=== PATIENT | male | born 2000 | race Caucasian/White ===

== ENCOUNTER 2024-03-19 22:00 | Emergency (ER) | payer MEDICAID ==
[~2024-03-19] VITALS: Ht 172.7 cm; Wt 78.5 kg
[2024-03-19 22:27] VITALS: BP 136/72; PULSE 110; RESP 18; TEMP 99; O2SAT 99
[2024-03-19 23:48] LABS: FLU A ANTIGEN negative (NEGATIVE); FLU B ANTIGEN NEGATIVE (NEGATIVE)
[2024-03-19] MEDS: ACETAMINOPHEN EXTRA STRENGTH 500 MG TAB PO ONE (23:51)
[2024-03-19] MEDS: KETOROLAC 30 MG/ML VIAL IM ONE (23:51)
[2024-03-20 00:43] VITALS: BP 136/72; PULSE 110; RESP 18; TEMP 99; O2SAT 99
== END 2024-03-20 00:43 | disposition home or self-care (01) ==
LOC: MED 22:00
DX: U07.1 COVID-19 (principal); J45.909 Unspecified asthma, uncomplicated
CPT/HCPCS: 87426; 87804; 96372; 99283; J1885

== ENCOUNTER 2024-06-24 04:45 | Emergency (ER) | payer MEDICAID ==
[~2024-06-24] VITALS: Ht 172.7 cm; Wt 81.6 kg
[2024-06-24 04:54] VITALS: BP 144/69; PULSE 81; RESP 18; TEMP 97.8; O2SAT 98
[2024-06-24 05:03] VITALS: BP 144/69; PULSE 81; RESP 18; TEMP 97.8
[2024-06-24] MEDS: NACL 0.9% 1,000 ML IV ONE (05:14)
[2024-06-24] MEDS: FAMOTIDINE 20 MG/2 ML VIAL IVP ONE (05:19)
[2024-06-24] MEDS: ONDANSETRON 4 MG/2 ML VIAL IVP ONE (05:19)
[2024-06-24 05:21] VITALS: O2SAT 98
[2024-06-24 05:25] LABS: BASOPHILS % (AUTO) 0.4 % (0.0-2.0); EOSINOPHILS # (AUTO) 0.4 K/uL (0-0.4); EOSINOPHILS % (AUTO) 4.9 % (0.0-4.0); HEMATOCRIT 46.3 % (36-52); HEMOGLOBIN 15.7 g/dL (12.0-18.0); LYMPHOCYTES # (AUTO) 1.7 K/uL (2.0-11.5); LYMPHOCYTES % (AUTO) 23.3 % (20.5-51.1); MEAN CORPUSCULAR HEMOGLOBIN 31 pg (27-31); MEAN CORPUSCULAR HGB CONC 34 g/dL (33-37); MEAN CORPUSCULAR VOLUME 92.5 fL (80-94); MONOCYTES # (AUTO) 0.9 K/uL (0.8-1.0); MONOCYTES % (AUTO) 11.8 % (1.7-9.3); NEUTROPHILS # (AUTO) 4.4 K/uL (1.8-7.7); NEUTROPHILS % (AUTO) 59.6 % (42.2-75.2); PLATELET COUNT (AUTO) 224 K/uL (140-450); RED CELL DISTRIBUTION WIDTH 13.2 % (11.6-13.7); WHITE BLOOD COUNT (AUTO) 7.3 K/uL (4.8-10.8)
[2024-06-24 05:33] LABS: ANION GAP 9.5 (8-16); CALCIUM 8.4 mg/dL (8.5-10.1); CARBON DIOXIDE 32.4 mmol/L (21-32); CREATININE 0.9 mg/dL (0.6-1.3); POTASSIUM 3.9 mmol/L (3.5-5.1)
[2024-06-24 05:38] LABS: ALBUMIN 3.5 g/dL (3.4-5.0); BILIRUBIN,DIRECT 0.2 mg/dL (0.0-0.3); TOTAL BILIRUBIN 1.1 mg/dL (0.0-1.0); TOTAL PROTEIN, SERUM 7.1 g/dL (6.4-8.2)
[2024-06-24 05:52] LABS: FLU A ANTIGEN negative (NEGATIVE); FLU B ANTIGEN NEGATIVE (NEGATIVE)
[2024-06-24] MEDS ORDERED: FAMO-90 PO (06:22)
[2024-06-24] MEDS ORDERED: ONDA-188 PO (06:23)
[2024-06-24] MEDS ORDERED: IMO2 PO (06:23)
[2024-06-24 06:41] VITALS: O2SAT 98
== END 2024-06-24 06:36 | disposition home or self-care (01) ==
LOC: MED 04:45
DX: B34.9 Viral infection, unspecified (principal); Z20.822 Contact with and (suspected) exposure to COVID-19; J45.909 Unspecified asthma, uncomplicated; Z79.899 Other long term (current) drug therapy
CPT/HCPCS: 36415; 71045; 80048; 80076; 83690; 85025; 87426; 87804; 96361; 96374; 96375; 99284; J2405; J3490; J7030; Q0092